=== PATIENT | female | born 1955 | race Caucasian/White ===

== ENCOUNTER → 2017-07-05 | Outpatient (CLI) | payer OTHER ==
[~2017-07-05] MED LIST: CALC500C3 PO; CETI10TA84 PO; CITA40TA12 PO; FLUT0.15; MULT-506 PO; SNG10
--- NOTE | 2017-07-05 11:13 | DIAGNOSTIC IMAGING REPORT ---
LEFT FOOT MIN 3 VIEWS ROUTINE CLINICAL HISTORY: M79.672 M79.675 PAIN IN LEFT FOOT AND TOE COMPARISON: None. DISCUSSION: The bones and joint spaces appear intact. There is no evidence of fracture, dislocation or bony disease. There is no evidence for soft tissue swelling. IMPRESSION: Negative study. The above report was generated using voice recognition software. It may contain grammatical, syntax or spelling errors. Electronically signed by: Lencho Dubon M.D. 07/05/2017 11:12 AM Dictated Date/Time: 07/05/2017 11:11 AM
== END | disposition home or self-care (01) ==
LOC: C.RAD1850 10:46
PROVIDERS: ATTEND Nurse Practitioner Family
DX: M79.672 Pain in left foot (principal); M79.675 Pain in left toe(s); M79.89 Other specified soft tissue disorders

== ENCOUNTER → 2017-08-31 | Outpatient (CLI) | payer OTHER ==
--- NOTE | 2017-08-31 15:57 | MAMMOGRAPHY REPORT ---
BILATERAL DIGITAL SCREENING MAMMOGRAM TOMOSYNTHESIS WITH CAD: 08/31/2017 CLINICAL HISTORY: Routine screening. TECHNIQUE: Breast tomosynthesis in addition to standard 2D mammography was performed. Current study was also evaluated with a Computer Aided Detection (CAD) system. COMPARISON: Comparison is made to exams dated: 04/29/2010 ultrasound, 04/29/2010 mammogram, 10/27/2009 ultrasound, 10/27/2009 mammogram, 10/15/2009 mammogram - [facility]. BREAST COMPOSITION: The tissue of both breasts is heterogeneously dense, which may obscure small mas ses. FINDINGS: No suspicious masses, calcifications, or areas of architectural distortion are noted in ei ther breast. There has been no significant interval change compared to prior exams. Scattered bilate ral benign-appearing calcifications are again noted. A linear scar marker denotes a scar on the righ t superior breast. IMPRESSION: ACR BI-RADS CATEGORY 2: BENIGN There is no mammographic evidence of malignancy. A 1 year screening mammogram is recommended. The pa tient will receive written notification of the results. Approximately 10% of breast cancers are not detected with mammography. A negative mammographic report should not delay biopsy if a clinically suggestive mass is present. Rebeca More M.D. ah/:08/31/2017 14:21:24 Resistance Brazer: Dayday KUMAR)([place]), [facility] letter sent: Normal 1/2 BI-RADS Code: ACR BI-RADS Category 2: Benign
== END | disposition home or self-care (01) ==
LOC: C.MAMM 13:20
PROVIDERS: ATTEND Nurse Practitioner Family
DX: Z12.31 Encounter for screening mammogram for malignant neoplasm of breast (principal)

== ENCOUNTER 2018-06-24 18:25 | Observation (INO) | payer OTHER ==
[~2018-06-24] VITALS: Ht 170.2 cm; Wt 73.5 kg
[2018-06-24] MEDS ORDERED: SODIUM CHLORIDE 0.9% 1000ML 1,000 ML IV SCH (18:37)
[2018-06-24 19:17] LABS: BASO % 0.6 %; BASO ABS # 0.05 K/uL (0-0.2); EOS % 1.8 %; EOS ABS # 0.16 K/uL (0-0.5); HEMOGLOBIN 13.6 g/dL (12.0-16.0); IG# 0.01 K/uL (0.00-0.02); LYMPH % 40.5 %; LYMPH ABS # 3.62 K/uL (1.2-3.4); MEAN CELL VOLUME 91.5 fL (80-100); MEAN CORPUSCULAR HEMOGLOBIN 30.4 pg (25-34); MEAN CORPUSCULAR HGB CONC 33.2 g/dl (32-36); MONO % 8.3 %; MONO ABS # 0.74 K/uL (0.11-0.59); NEUT % 48.7 %; NEUT ABS # 4.36 K/uL (1.4-6.5); PLATELET COUNT 293 K/uL (130-400); RED CELL DISTRIBUTION WIDTH CV 12.6 % (11.5-14.5); RED CELL DISTRIBUTION WIDTH SD 42.3 fL (36.4-46.3); WHITE BLOOD COUNT 8.94 K/uL (4.8-10.8)
[2018-06-24 19:31] LABS: PTT PATIENT 22.9 SECONDS (21.0-31.0)
[2018-06-24 19:43] LABS: BLOOD UREA NITROGEN 16 mg/dl (7-18); CALCIUM 9.5 mg/dl (8.5-10.1); CARBON DIOXIDE 25 mmol/L (21-32); CKMB < 1.0 ng/ml (0.5-3.6); CREATININE 0.86 mg/dl (0.60-1.20); GLUCOSE 92 mg/dl (70-99); POTASSIUM 3.9 mmol/L (3.5-5.1); SODIUM 140 mmol/L (136-145)
--- NOTE | 2018-06-24 19:52 | DIAGNOSTIC IMAGING REPORT ---
HEAD WITHOUT CONTRAST (CT) CLINICAL HISTORY: 63 years-old Female presenting with Stroke, left-sided numbness. TECHNIQUE: Multidetector CT imaging of the head was performed without the use of intravenous contrast. IV contrast: None. A dose lowering technique was used consistent with the principles of ALARA (as low as reasonably achievable). COMPARISON: None. CT DOSE (mGy.cm): The estimated cumulative dose is 638.56 mGycm. FINDINGS: Retail Aide topogram: Unremarkable. Ventricles and sulci normal in size. Brain parenchyma normal in appearance with preserved trejo-white differentiation. No mass effect or midline shift. No hemorrhage or acute territorial infarct. No extra-axial fluid collection. Paranasal sinuses and mastoid air cells clear. Calvarium intact. IMPRESSION: 1. No acute intracranial abnormality. Electronically signed by: Kale Burt M.D. 06/24/2018 7:51 PM Dictated Date/Time: 06/24/2018 7:49 PM
[2018-06-24] MEDS ORDERED: DILT120T8 PO (20:29)
[2018-06-24] MEDS ORDERED: MONT1TAB3 PO (20:29)
[2018-06-24] MEDS ORDERED: PHARMACIST DISCHARGE MED REC CONSULT PRN (21:15)
--- NOTE | 2018-06-24 21:19 | History and Physical ---
History & Physical Date & Time of Service: Jun 24, 2018 at 21:15 Chief Complaint: Lt Sided Tingling,Pins And Dewey Primary Care Physician: Naseem Oh M.D. History of Present Illness Source: patient 63 year old female with a PMH of Prinzmetal angina that presented to [facility] with left sided tingling. The tingling occurred at approximately 4pm today. It went all the way from her head down to her toes. It included her scalp, face, arms and leg all on the left side of her body. It has slowly been improving since she arrived to the ED. She has not had these symptoms in the past. She denies any numbness, weakness, headache, nausea, vomiting, chest pain, palpitations, decreased appetite, difficulty swallowing, fevers, chills. Besides the tingling she notes she feels well. Past Medical/Surgical History Medical Problems: (1) Chest pain (2) Precordial chest pain (3) Tingling of left upper extremity and left side of face Family History No significant family history Mother has a history of strokes starting in her 50's to her 90's No family history of hypercoagulable disease Social History Smoking Status: Never Smoker Smokeless Tobacco Use: No Alcohol Use: occasionally Drug Use: none Marital Status: Housing status: lives with family Occupational Status: employed Immunizations History of Influenza Vaccine: Unknown History of Tetanus Vaccine?: Unknown History of Pneumococcal: Unknown History of Hepatitis B Vaccine: Unknown Allergies Coded Allergies: Penicillins (Verified Allergy, Severe, ANAPHYLAXSIS, 06/24/18) POLLEN (Verified Allergy, Intermediate, SNEEZING, CONGESTION, 06/24/18) Home Medications Scheduled Cetirizine (Zyrtec), 10 MG PO HS Diltiazem Hcl (Cardizem), 120 MG PO DAILY Multivitamin (Multivitamin), 1 TAB PO DAILY Scheduled PRN Calcium Carbonate (Tums), 2 TAB PO DIRECTED PRN for HEARTBURN/INDIGESTION Fluticasone Propionate (Nasal) (Flonase Allergy Relief), 2 PUFFS NA DIRECTED PRN for ALLERGY Montelukast Sodium (Singulair), 10 MG PO DAILY PRN for Seasonal Allergies Review of Systems 10 systems were reviewed and negative except as noted in the HPI Physical Exam Vital Signs Date Time Temp Pulse Resp B/P (MAP) Pulse Ox O2 Delivery O2 Flow Rate FiO2 06/24/18 20:35 36.8 65 17 148/73 98 Room Air 06/24/18 20:21 64 06/24/18 19:07 98 Room Air 06/24/18 18:28 36.7 79 17 139/77 99 Room Air General Appearance: WD/WN, no apparent distress Eyes: PERRL, EOMI, sclerae normal ENT: hearing grossly normal, pharynx normal Neck: supple, no adenopathy, no JVD, no carotid bruits, trachea midline Respiratory/Chest: lungs clear, no respiratory distress, no accessory muscle use Cardiovascular: regular rate, rhythm, no edema, no murmur, normal peripheral pulses Abdomen/GI: normal bowel sounds, non tender, soft Extremities/Musculoskelatal: normal inspection, no calf tenderness, no pedal edema, non-tender 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, no motor/sensory deficits, alert, oriented x 3 Skin: normal color, warm/dry, no rash Diagnostics Laboratory Results Results Past 24 Hours Test 06/24/18 18:59 06/24/18 19:00 06/24/18 21:07 Range/Units Bedside Glucose 91 70-90 mg/dl White Blood Count 8.94 4.8-10.8 K/uL Red Blood Count 4.48 4.2-5.4 M/uL Hemoglobin 13.6 12.0-16.0 g/dL Hematocrit 41.0 37-47 % Mean Corpuscular Volume 91.5 80-100 fL Mean Corpuscular Hemoglobin 30.4 25-34 pg Mean Corpuscular Hemoglobin Concent 33.2 32-36 g/dl Platelet Count 293 130-400 K/uL Mean Platelet Volume 10.0 7.4-10.4 fL Neutrophils (%) (Auto) 48.7 % Lymphocytes (%) (Auto) 40.5 % Monocytes (%) (Auto) 8.3 % Eosinophils (%) (Auto) 1.8 % Basophils (%) (Auto) 0.6 % Neutrophils # (Auto) 4.36 1.4-6.5 K/uL Lymphocytes # (Auto) 3.62 1.2-3.4 K/uL Monocytes # (Auto) 0.74 0.11-0.59 K/uL Eosinophils # (Auto) 0.16 0-0.5 K/uL Basophils # (Auto) 0.05 0-0.2 K/uL RDW Standard Deviation 42.3 36.4-46.3 fL RDW Coefficient of Variation 12.6 11.5-14.5 % Immature Granulocyte % (Auto) 0.1 % Immature Granulocyte # (Auto) 0.01 0.00-0.02 K/uL Prothrombin Time 10.3 9.0-12.0 SECONDS Prothromb Time International Ratio 1.0 0.9-1.1 Activated Partial Thromboplast Time 22.9 21.0-31.0 SECONDS Partial Thromboplastin Ratio 0.9 Sodium Level 140 136-145 mmol/L Potassium Level 3.9 3.5-5.1 mmol/L Chloride Level 106 98-107 mmol/L Carbon Dioxide Level 25 21-32 mmol/L Anion Gap 9.0 3-11 mmol/L Blood Urea Nitrogen 16 7-18 mg/dl Creatinine 0.86 0.60-1.20 mg/dl Est Creatinine Clear Calc Drug Dose 70.5 ml/min Estimated GFR () 83.3 Estimated GFR (Non- 71.9 BUN/Creatinine Ratio 18.5 10-20 Random Glucose 92 70-99 mg/dl Calcium Level 9.5 8.5-10.1 mg/dl Magnesium Level 1.9 1.8-2.4 mg/dl Total Creatine Kinase 52 26-192 U/L Creatine Kinase MB < 1.0 0.5-3.6 ng/ml Creatine Kinase MB Ratio 0-3.0 Troponin I < 0.015 0-0.045 ng/ml Diagnostic Radiology [~ rep ct add3]] HEAD WITHOUT CONTRAST (CT) CLINICAL HISTORY: 63 years-old Female presenting with Stroke, left-sided numbness. TECHNIQUE: Multidetector CT imaging of the head was performed without the use of intravenous contrast. IV contrast: None. A dose lowering technique was used consistent with the principles of ALARA (as low as reasonably achievable). COMPARISON: None. CT DOSE (mGy.cm): The estimated cumulative dose is 638.56 mGycm. FINDINGS: Coal Cager topogram: Unremarkable. Ventricles and sulci normal in size. Brain parenchyma normal in appearance with preserved trejo-white differentiation. No mass effect or midline shift. No hemorrhage or acute territorial infarct. No extra-axial fluid collection. Paranasal sinuses and mastoid air cells clear. Calvarium intact. IMPRESSION: 1. No acute intracranial abnormality. Normal EKG Impression Assessment and Plan 63 year old female with a PMH of Prinzmetal angina that presented with left sided tingling. Dr. Saleh and Dr. Berman want to admit the patient for a TIA workup. Vitals normal, Normal labs, normal EKG and normal CT scan of head thus far TIA workup - administer 81mg of aspirin - order carotid US and echo - order lipid panel and HbA1c - Start 40mg of atorvastatin and aspirin daily - Blood pressure currently well controlled - admit to telemetry - consult neuro Prinzmetal angina - continue cardizem DVT - patient is ambulatory - SCD's Full Code Attending addendum: I have physically seen this patient, have supervised the medical residents activities, and agree with the H&P unless as otherwise noted. Assessment and Plan: Resolved left upper and lower extremity tingling and numbness/TIA-- Follow ischemic stroke/TIA protocol pathway. The patient will be admitted to telemetry for serial cardiac enzymes, serial EKG's, cardiac rhythm monitoring and a 2-D echocardiogram with Dopplers. Start chewable aspirin 81 mg daily with first dose tonight. Neurochecks per protocol. Order carotid ultrasound. Order fasting lipid panel and hemoglobin A1c. Order MRI brain without contrast. Start Lipitor 40 mg daily. Consult neurology CAD/hypertension/Prinzmetal's angina-- Continue Cardizem CD 120 mg p.o. daily. Advanced Directives Existing Advance Directive: No Existing Living Will: No Existing Power of Chinese Herbalist: No Resuscitation Status VTE Prophylaxis Will order VTE Prophylaxis: Yes Social Service Consult None Apply
[2018-06-24] MEDS ORDERED: ASPIRIN 81 MG CHEW PO STA (21:21)
[2018-06-24 21:51] VITALS: O2SAT 98
[2018-06-24] MEDS ORDERED: ASPIRIN 81 MG CHEW PO ONE (22:15)
[2018-06-24 22:20] VITALS: BP 138/58; PULSE 62; TEMP 36.4; O2SAT 94
[2018-06-24] MEDS: ASPIRIN 81 MG CHEW PO ONE ×2 (22:20→22:30)
[2018-06-24] MEDS ORDERED: IV FLUIDS COMPLETED PRN (22:30)
[2018-06-25 00:09] VITALS: BP 136/77; PULSE 62; TEMP 36.5; O2SAT 94
[2018-06-25 00:26] VITALS: Ht 170.2 cm; Wt 73.5 kg
--- NOTE | 2018-06-25 00:27 | EMERGENCY ROOM VISIT NOTE ---
History Report prepared by Navya: Genesis Schuster Under the Supervision of: Dr. Pavan Saleh D.O. First contact with patient: 18:32 Chief Complaint: OTHER COMPLAINT Stated Complaint: LT SIDED TINGLING,PINS AND NEEDLES History of Present Illness The patient is a 63 year old female who presents to the Emergency Room with complaints of constant L-sided tingling beginning 2 hours ago. She notes the tingling is present on the entire left side of her body, from her head to feet, and describes it as " pins and needles." Denies any weakness. No exacerbating or remitting factors. The patient denies any weakness, numbness, headache, changes in vision, chest pain, shortness of breath, nausea, vomiting, diarrhea, pain with urination, and melena. She reports a history of Prinzmetal angina, and notes her current symptoms do not feel similar to that. The patient denies a history of stents. She states she sees Dr. Oh of [place] as her PCP. The patient denies blood thinner use. Source of History: patient Onset: 2 hours ago Position: other (enitre L side of body) Quality: other (tingling) Timing: constant Associated Symptoms: No headache, No SOB, No nausea, No vomiting, No melena , No urinary symptoms, No weakness, No numbness Note: Denies: changes in vision Review of Systems See HPI for pertinent positives & negatives. A total of 10 systems reviewed and were otherwise negative. Past Medical & Surgical Medical Problems: (1) Chest pain (2) Tingling of left upper extremity and left side of face Family History No significant family history Social History Smoking Status: Never Smoker Marital Status: Housing Status: lives with family Occupation Status: employed Current/Historical Medications Scheduled Cetirizine (Zyrtec), 10 MG PO HS Diltiazem Hcl (Cardizem), 120 MG PO DAILY Multivitamin (Multivitamin), 1 TAB PO DAILY Scheduled PRN Calcium Carbonate (Tums), 2 TAB PO DIRECTED PRN for HEARTBURN/INDIGESTION Fluticasone Propionate (Nasal) (Flonase Allergy Relief), 2 PUFFS NA DIRECTED PRN for ALLERGY Montelukast Sodium (Singulair), 10 MG PO DAILY PRN for Seasonal Allergies Allergies Coded Allergies: Penicillins (Verified Allergy, Severe, ANAPHYLAXSIS, 06/24/18) POLLEN (Verified Allergy, Intermediate, SNEEZING, CONGESTION, 06/24/18) Physical Exam Vital Signs Date Time Temp Pulse Resp B/P (MAP) Pulse Ox O2 Delivery O2 Flow Rate FiO2 06/24/18 20:35 36.8 65 17 148/73 98 Room Air 06/24/18 20:21 64 06/24/18 19:07 98 Room Air 06/24/18 18:28 36.7 79 17 139/77 99 Room Air Physical Exam GENERAL: Sitting up in bed, alert, well appearing, well nourished, no distress, non-toxic EYE EXAM: normal conjunctiva. PERRL and EOM's intact. OROPHARYNX: no exudate, no erythema, lips, buccal mucosa, and tongue normal and mucous membranes are moist NECK: supple, no nuchal rigidity, no adenopathy, non-tender LUNGS: Clear to auscultation. Normal chest wall mechanics HEART: no murmurs, S1 normal and S2 normal ABDOMEN: abdomen soft, non-tender, normo-active bowel sounds, no masses, no rebound or guarding. BACK: Back is symmetrical on inspection and there is no deformity, no midline tenderness, no CVA tenderness. SKIN: no rashes and no bruising UPPER EXTREMITIES: upper extremities are grossly normal. LOWER EXTREMITIES: No pitting edema. NEURO EXAM: Normal sensorium, cranial nerves II-XII intact, normal speech, no weakness of arms, no weakness of legs. No drift. Finger to nose intact. Gross sensation intact. Rapid alternating movements of upper extremities intact, ambulates without difficulty. Medical Decision & Procedures ER Provider Diagnostic Interpretation: Radiology results as stated below per my review and the radiologist's interpretation: HEAD WITHOUT CONTRAST (CT) CLINICAL HISTORY: 63 years-old Female presenting with Stroke, left-sided numbness. TECHNIQUE: Multidetector CT imaging of the head was performed without the use of intravenous contrast. IV contrast: None. A dose lowering technique was used consistent with the principles of ALARA (as low as reasonably achievable). COMPARISON: None. CT DOSE (mGy.cm): The estimated cumulative dose is 638.56 mGycm. FINDINGS: Wood Patternmaker topogram: Unremarkable. Ventricles and sulci normal in size. Brain parenchyma normal in appearance with preserved trejo-white differentiation. No mass effect or midline shift. No hemorrhage or acute territorial infarct. No extra-axial fluid collection. Paranasal sinuses and mastoid air cells clear. Calvarium intact. IMPRESSION: 1. No acute intracranial abnormality. Electronically signed by: Kale Burt M.D. 06/24/2018 7:51 PM Dictated Date/Time: 06/24/2018 7:49 PM Laboratory Results 06/24/18 19:00 Red Blood Count 4.48, Mean Corpuscular Volume 91.5, Mean Corpuscular Hemoglobin 30.4, Mean Corpuscular Hemoglobin Concent 33.2, Mean Platelet Volume 10.0, Neutrophils (%) (Auto) 48.7, Lymphocytes (%) (Auto) 40.5, Monocytes (%) (Auto) 8.3, Eosinophils (%) (Auto) 1.8, Basophils (%) (Auto) 0.6, Neutrophils # (Auto) 4.36, Lymphocytes # (Auto) 3.62, Monocytes # (Auto) 0.74, Eosinophils # (Auto) 0.16, Basophils # (Auto) 0.05 06/24/18 19:00 Test 06/24/18 18:59 06/24/18 19:00 Bedside Glucose 91 mg/dl (70-90) White Blood Count 8.94 K/uL (4.8-10.8) Red Blood Count 4.48 M/uL (4.2-5.4) Hemoglobin 13.6 g/dL (12.0-16.0) Hematocrit 41.0 % (37-47) Mean Corpuscular Volume 91.5 fL (80-100) Mean Corpuscular Hemoglobin 30.4 pg (25-34) Mean Corpuscular Hemoglobin Concent 33.2 g/dl (32-36) Platelet Count 293 K/uL (130-400) Mean Platelet Volume 10.0 fL (7.4-10.4) Neutrophils (%) (Auto) 48.7 % Lymphocytes (%) (Auto) 40.5 % Monocytes (%) (Auto) 8.3 % Eosinophils (%) (Auto) 1.8 % Basophils (%) (Auto) 0.6 % Neutrophils # (Auto) 4.36 K/uL (1.4-6.5) Lymphocytes # (Auto) 3.62 K/uL (1.2-3.4) Monocytes # (Auto) 0.74 K/uL (0.11-0.59) Eosinophils # (Auto) 0.16 K/uL (0-0.5) Basophils # (Auto) 0.05 K/uL (0-0.2) RDW Standard Deviation 42.3 fL (36.4-46.3) RDW Coefficient of Variation 12.6 % (11.5-14.5) Immature Granulocyte % (Auto) 0.1 % Immature Granulocyte # (Auto) 0.01 K/uL (0.00-0.02) Prothrombin Time 10.3 SECONDS (9.0-12.0) Prothromb Time International Ratio 1.0 (0.9-1.1) Activated Partial Thromboplast Time 22.9 SECONDS (21.0-31.0) Partial Thromboplastin Ratio 0.9 Anion Gap 9.0 mmol/L (3-11) Est Creatinine Clear Calc Drug Dose 70.5 ml/min Estimated GFR () 83.3 Estimated GFR (Non- 71.9 BUN/Creatinine Ratio 18.5 (10-20) Calcium Level 9.5 mg/dl (8.5-10.1) Magnesium Level 1.9 mg/dl (1.8-2.4) Total Creatine Kinase 52 U/L (26-192) Creatine Kinase MB < 1.0 ng/ml (0.5-3.6) Creatine Kinase MB Ratio (0-3.0) Troponin I < 0.015 ng/ml (0-0.045) Laboratory results per my review. Medications Administered Medications (Trade) Dose Ordered Sig/Azul Route Start Time Stop Time Status Last Admin Dose Admin Sodium Chloride 1,000 ml @ 50 mls/hr Q20H IV 06/24/18 18:37 06/24/18 22:20 DC 06/24/18 19:01 50 MLS/HR ECG Per My Interpretation Indication: weakness Rate (beats per minute): 65 Rhythm: normal sinus Findings: other (normal axis. no PVCs.) ED Course ED COURSE: Vital signs were reviewed and showed situational hypertension. The patients medical record was reviewed The above diagnostic studies were performed and reviewed. ED treatments and interventions as stated above. 1837: The patient was evaluated in room B3B. A complete history and physical examination was performed. Ordered Sodium Chloride 1000 ml @ 50 mls/hr IV. 1953: Upon reevaluation, the patient's tingling has improved. 2044: I reviewed the patient's case with Dr. Sanderson [facility] neurology. She recommends admittance of the patient for a stroke workup. 2050: I reviewed the patient's case with Dr. Fonseca [facility] hospitalist. He will evaluate the patient for further management. 2053: Upon reevaluation, the patient is resting. I discussed my findings with the patient and she understands and agrees with the treatment plan. Based on the patients age, coexisting illnesses, exam and lab findings the decision to treat as an inpatient was made. The patient remained stable while under my care. The patient will be evaluated for further management. Medical Decision Differential Diagnosis includes but is not limited to ischemic Stroke, hemorrhagic stroke, bells palsy, mass, neoplasm, migraine headache, seizure, subarachnoid hemorrhage, TIA, and transient global amnesia. Patient is a 63-year-old female who presents the ER for left-sided paresthesias from her head down to her leg. No other exacerbating or remitting factors. Started at 430. She denies any weakness. Lower exam is completely intact. CBC along with BMP, and troponin was negative. CT head was negative. Discussed with neurology and they agreed that she likely needs a stroke workup and admission. Cyst with internal medicine. Patient was updated at bedside. EKG was unremarkable. patient was given fluids IV. Medication Reconcilliation Current Medication List: was personally reviewed by me Blood Pressure Screening Patient's blood pressure: Elevated blood pressure Blood pressure disposition: Elevated BP felt to be situational Consults Time Called: 1951 Consulting Physician: Dr. Sanderson, [facility] neurology Returned Call: [phone]: I reviewed the patient's case with Dr. Sanderson [facility] neurology. She recommends admittance of the patient for a stroke workup. Additional Consults: Time Called: 2047 Consulted Physician: Dr. Fonseca [facility] hospitalist Returned Call: [phone] Additional Comments: 2050: I reviewed the patient's case with Dr. Fonseca [facility] hospitalist. He will evaluate the patient for further management. Impression Primary Impression: Paresthesia Scribe Attestation The scribe's documentation has been prepared under my direction and personally reviewed by me in its entirety. I confirm that the note above accurately reflects all work, treatment, procedures, and medical decision making performed by me. Departure Information Dispostion Being Evaluated By Hospitalist Referrals Naseem Oh M.D. (PCP) Patient Instructions My [facility]
[2018-06-25 04:51] VITALS: BP 129/78; PULSE 62; TEMP 36.5; O2SAT 98
--- NOTE | 2018-06-25 06:31 | DIAGNOSTIC IMAGING REPORT ---
CAROTID DOPPLER NECK ART HISTORY: Mental status change TIA COMPARISON: None. TECHNIQUE: Real-time, grayscale, and color Doppler sonography of the carotid arteries was performed. Imaging reviewed in the transverse and longitudinal planes. All measurements were calculated based on NASCET criteria. FINDINGS: Antegrade flow is seen in the bilateral vertebral arteries. The brachial pressures are hemodynamically similar. Mild plaque bilaterally The peak systolic velocity within the right ICA is 76. The right systolic ratio is 0.74 The peak systolic velocity within the left ICA is 68. The left systolic ratio is 0.65. IMPRESSION: No hemodynamically significant stenosis seen within the carotid arteries. The above report was generated using voice recognition software. It may contain grammatical, syntax or spelling errors. Electronically signed by: Lencho Dubon M.D. 06/25/2018 6:29 AM Dictated Date/Time: 06/25/2018 6:28 AM
[2018-06-25 07:32] LABS: HEMATOCRIT 40.4 % (37-47); HEMOGLOBIN 13.2 g/dL (12.0-16.0); MEAN CELL VOLUME 91.8 fL (80-100); MEAN CORPUSCULAR HGB CONC 32.7 g/dl (32-36); MEAN PLATELET VOLUME 9.8 fL (7.4-10.4); PLATELET COUNT 273 K/uL (130-400); RED CELL DISTRIBUTION WIDTH CV 12.6 % (11.5-14.5); RED CELL DISTRIBUTION WIDTH SD 42.5 fL (36.4-46.3); WHITE BLOOD COUNT 5.72 K/uL (4.8-10.8)
[2018-06-25 08:00] LABS: CALCIUM 8.6 mg/dl (8.5-10.1); CREATININE 0.75 mg/dl (0.60-1.20); POTASSIUM 3.8 mmol/L (3.5-5.1)
[2018-06-25 08:13] LABS: BASO % 0.9 %; BASO ABS # 0.05 K/uL (0-0.2); EOS % 3.5 %; IG# 0.01 K/uL (0.00-0.02); LYMPH ABS # 2.86 K/uL (1.2-3.4); MONO % 8.7 %; NEUT % 36.7 %
[2018-06-25 08:17] VITALS: BP 119/79; PULSE 64; TEMP 36.6; O2SAT 94
[2018-06-25] MEDS ORDERED: DILTIAZEM HCL 120 MG CAPCR PO SCH (09:00)
[2018-06-25] MEDS ORDERED: ATORVASTATIN 40 MG TAB PO SCH (09:00)
[2018-06-25] MEDS ORDERED: ASPIRIN 81 MG ECTAB PO SCH (09:00)
--- NOTE | 2018-06-25 09:27 | DIAGNOSTIC IMAGING REPORT ---
MRI OF THE BRAIN WITHOUT IV CONTRAST CLINICAL HISTORY: Left-sided paresthesias. COMPARISON STUDY: CT of the brain dated 06/24/2018. TECHNIQUE: MRI of the brain was performed utilizing various T1 and T2-weighted sequences in the axial, sagittal, and coronal planes. IV contrast was not administered for this examination. FINDINGS: Brain parenchyma: There is minimal subcortical and periventricular microangiopathic disease. The brain parenchyma is otherwise normal in appearance. There is no hemorrhage or mass effect. There is no restricted diffusion to suggest acute ischemia. Ornelas-white matter differentiation is preserved. No extra-axial fluid collection is seen. The cerebellar tonsils are normal in configuration. Ventricles, sulci, and cisterns: Normal in configuration. Pituitary and sella: Unremarkable. Intracranial vasculature: Normal flow voids are maintained at the skull base. Orbits: The bony orbits are grossly intact. Orbital contents are normal in appearance. Sinuses and mastoids: There is trace mucosal thickening in the left maxillary antrum. The remaining paranasal sinuses and mastoid air cells are clear. Calvarium: Unremarkable. Cervical cord: Partially visualized cervical spinal cord is normal in morphology and signal intensity. IMPRESSION: No acute intracranial abnormality. Electronically signed by: Cristian Rhodes M.D. 06/25/2018 9:26 AM Dictated Date/Time: 06/25/2018 9:19 AM
--- NOTE | 2018-06-25 10:36 | Neurology Consultation ---
Neurology Consultation Date of Consultation: Jun 25, 2018. Attending Physician: Omar Fonseca M.D. Primary Care Physician: Naseem Oh M.D. Reason for Consultation: TIA History of Present Illness Source: patient, hospital records The patient is a 63-year-old female with a chief complaint left-sided numbness. She complains of left-sided numbness and tingling that began acutely yesterday evening about 2 hours prior to presentation in the emergency department. She complained of an associated feeling of heaviness in the arm and leg as well. She was not aware of any facial weakness, change in speech, vision change, or headache. The symptoms resolved in about 2-3 hours. The patient indicates that she was feeling well prior to symptom onset and denies any particular recent injury or illness. She does not have a history of similar symptoms in the past. Past medical history is notable for Prinzmetal's angina for which she has been taking a calcium channel vandana. She denies any recent changes in her medications. A CT of the head completed in the emergency department was unremarkable. No evidence of hemorrhage or acute process. Electrocardiogram revealed a sinus rhythm, 65 beats per minute. The patient's blood pressure was mildly elevated yesterday.A serum glucose was normal although hemoglobin A1c is slightly elevated at 6.0. The patient is also completed a follow-up brain MRI. I reviewed the images and radiologist's interpretation of this test. There is evidence of minimal, scattered, microangiopathic disease. Past Medical/Surgical History Medical Problems: (1) Paresthesia Status: Acute (2) Precordial chest pain Status: Acute Family History Family history notable for stroke in the mother. Social History Smokeless Tobacco Use: No Alcohol Use: occasionally Drug Use: none Marital Status: Housing Status: lives with family Occupation Status: employed Allergies Coded Allergies: Penicillins (Verified Allergy, Severe, ANAPHYLAXSIS, 06/24/18) POLLEN (Verified Allergy, Intermediate, SNEEZING, CONGESTION, 06/24/18) Current Inpatient Medications Current Inpatient Medications Medications (Trade) Dose Ordered Sig/Azul Route Start Time Stop Time Status Last Admin Dose Admin Atorvastatin Calcium (Lipitor Tab) 40 mg QAM PO 06/25/18 09:00 07/25/18 08:59 Aspirin (Ecotrin Tab) 81 mg QAM PO 06/25/18 09:00 07/25/18 08:59 06/25/18 07:42 81 MG Miscellaneous Information (Pharmacist Discharge Med Rec Consult) 1 ea UD PRN N/A 06/24/18 21:15 07/24/18 21:14 Diltiazem HCl (Cardizem Cd Cap) 120 mg DAILY PO 06/25/18 09:00 07/25/18 08:59 06/25/18 07:43 120 MG Miscellaneous (Iv Fluids Completed) 1 ea PRN PRN N/A 06/24/18 22:30 06/24/19 22:29 06/24/18 22:31 1 EA Review of Systems Constitutional: No fever chills Eyes: No vision loss or diplopia ENT: No vertigo or hearing loss Cardiovascular: No chest pain or palpitations Respiratory: No cough or shortness of breath Musculoskeletal: No myalgia or arthralgia Neurological: As per history of present illness Skin: No rash, lesions or sores. No recent tick bite. A full 10 point review of systems was obtained from this patient with pertinent positives and negatives described in the history of present illness and otherwise listed above. All remaining systems were reviewed and are negative Physical Exam Vital Signs (Past 24 Hrs): Date Time Temp Pulse Resp B/P (MAP) Pulse Ox O2 Delivery O2 Flow Rate FiO2 06/25/18 08:17 36.6 64 18 119/79 (92) 94 Room Air 06/25/18 08:00 Room Air 06/25/18 04:51 36.5 62 18 129/78 (95) 98 Room Air 06/25/18 00:26 Room Air 06/25/18 00:09 36.5 62 18 136/77 (96) 94 Room Air 06/25/18 00:00 Room Air 06/24/18 22:20 36.4 62 16 138/58 (84) 94 Room Air 06/24/18 21:51 36.5 59 17 144/70 98 Room Air 06/24/18 20:35 36.8 65 17 148/73 98 Room Air 06/24/18 20:21 64 06/24/18 19:07 98 Room Air 06/24/18 18:28 36.7 79 17 139/77 99 Room Air The patient is a well-developed, well-nourished elderly female. She is lying comfortably in bed. She is alert and fully oriented. Recent and remote memory intact. Attention and concentration normal. Patient exhibits a normal spontaneous speech pattern as well as an age-appropriate fund of knowledge. Visual huerta full to confrontation. Visual acuity normal. Pupils equal round react to light and accommodation. Eye movements normal. No nystagmus. Facial sensation intact bilaterally. There is normal facial symmetry and strength. No facial droop. Hearing intact bilaterally. Palate elevates to midline. Shoulder shrug strength intact. Tongue protrudes to midline. Sensation intact to all modalities in all 4 limbs. There is no jeana sensory deficit. Deep tendon reflexes are intact and symmetrical for the arms and legs. Plantar responses downgoing bilaterally. There is no dysdiadochokinesia or dysmetria of [id number]-imcz or heel to trevizo bilaterally. Ophthalmoscopic examination reveals normal-appearing optic discs and posterior segments. No papilledema or hemorrhages. Carotid pulses normal bilaterally, no bruits to auscultation. Gait and station normal. Muscle strength normal throughout. There is normal muscle tone. No atrophy. No abnormal movements observed. Laboratory Results Past 24 Hours: 06/25/18 07:18 Red Blood Count 4.40, Mean Corpuscular Volume 91.8, Mean Corpuscular Hemoglobin 30.0, Mean Corpuscular Hemoglobin Concent 32.7, Mean Platelet Volume 9.8, Neutrophils (%) (Auto) 36.7, Lymphocytes (%) (Auto) 50.0, Monocytes (%) (Auto) 8.7, Eosinophils (%) (Auto) 3.5, Basophils (%) (Auto) 0.9, Neutrophils # (Auto) 2.10, Lymphocytes # (Auto) 2.86, Monocytes # (Auto) 0.50, Eosinophils # (Auto) 0.20, Basophils # (Auto) 0.05 06/25/18 07:18 Test 06/24/18 18:59 06/24/18 19:00 06/25/18 07:18 Bedside Glucose 91 mg/dl (70-90) Prothrombin Time 10.3 SECONDS (9.0-12.0) Prothromb Time International Ratio 1.0 (0.9-1.1) Activated Partial Thromboplast Time 22.9 SECONDS (21.0-31.0) Partial Thromboplastin Ratio 0.9 Estimated Average Glucose 126 mg/dl Hemoglobin A1c 6.0 % (4.5-5.6) Magnesium Level 1.9 mg/dl (1.8-2.4) Total Creatine Kinase 52 U/L (26-192) Creatine Kinase MB < 1.0 ng/ml (0.5-3.6) Creatine Kinase MB Ratio (0-3.0) Troponin I < 0.015 ng/ml (0-0.045) White Blood Count 5.72 K/uL (4.8-10.8) Red Blood Count 4.40 M/uL (4.2-5.4) Hemoglobin 13.2 g/dL (12.0-16.0) Hematocrit 40.4 % (37-47) Mean Corpuscular Volume 91.8 fL (80-100) Mean Corpuscular Hemoglobin 30.0 pg (25-34) Mean Corpuscular Hemoglobin Concent 32.7 g/dl (32-36) Platelet Count 273 K/uL (130-400) Mean Platelet Volume 9.8 fL (7.4-10.4) Neutrophils (%) (Auto) 36.7 % Lymphocytes (%) (Auto) 50.0 % Monocytes (%) (Auto) 8.7 % Eosinophils (%) (Auto) 3.5 % Basophils (%) (Auto) 0.9 % Neutrophils # (Auto) 2.10 K/uL (1.4-6.5) Lymphocytes # (Auto) 2.86 K/uL (1.2-3.4) Monocytes # (Auto) 0.50 K/uL (0.11-0.59) Eosinophils # (Auto) 0.20 K/uL (0-0.5) Basophils # (Auto) 0.05 K/uL (0-0.2) RDW Standard Deviation 42.5 fL (36.4-46.3) RDW Coefficient of Variation 12.6 % (11.5-14.5) Immature Granulocyte % (Auto) 0.2 % Immature Granulocyte # (Auto) 0.01 K/uL (0.00-0.02) Anion Gap 7.0 mmol/L (3-11) Est Creatinine Clear Calc Drug Dose 74.7 ml/min Estimated GFR () 98.3 Estimated GFR (Non- 84.8 BUN/Creatinine Ratio 22.5 (10-20) Calcium Level 8.6 mg/dl (8.5-10.1) Triglycerides Level 143 mg/dl (0-150) Cholesterol Level 187 mg/dl (0-200) HDL Cholesterol 48 mg/dl LDL Cholesterol, Calculated 110 mg/dl VLDL Cholesterol, Calculated 29 mg/dl Cholesterol/HDL Ratio 3.9 Impression Probable TIA localizing to the subcortical right cerebral hemisphere. Symptoms completely resolved. Intact neurological examination. Generally unremarkable neuro imaging with evidence of mild chronic microvascular change. No evidence of carotid atherosclerotic disease. Patient may have borderline diabetes mellitus. Blood pressure normal today. Plan Agree with aspirin 81 milligrams per day. Patient can probably do without the statin. She does have a history of intolerance to statins. Ongoing outpatient management for borderline diabetes mellitus. There does not appear to be any need for PT or OT. Follow-up with results of the echocardiogram. No further recommendations at this time.
[2018-06-25] MEDS ORDERED: ASPI-461 PO (14:49)
--- NOTE | 2018-06-25 14:52 | Discharge Instructions ---
Discharge Instructions Date of Service Jun 25, 2018. Admission Reason for Admission: Tingling Of Lt Upper Extremity And Lt Side Of Face Discharge Discharge Diagnosis / Problem: TIA Discharge Goals Goal(s): Improve disease control, Diagnostic testing Activity Recommendations Activity Limitations: resume your previous activity Exercise/Sports Limitations: gradually increase as tolerated . Instructions / Follow-Up Instructions / Follow-Up Please follow up with your primary care provider within about a week Risk Factors for Stroke: You can reduce your chances of stroke by working with your medical provider to adopt a healthy lifestyle. Some specific ways to lower your chance of stroke are: * If you are a smoker, now is the time to stop smoking cigarettes * If you are diabetic, improve the control of your blood sugars * Avoid excessive amounts of alcohol * Control high blood pressure * Lose weight if you are overweight * Be sure to lead an active lifestyle * Eat a healthy diet low in salt, cholesterol and fat You should know about other risk factors for stroke that you are unable to control. These include: * Age 55 years or older * Male gender * Certain racial groups: , or / * Family History of Stroke, Mini stroke or Heart Attack * Sickle Cell Disease Follow Up: It is important for you to keep your follow up appointments with your medical provider. Current Hospital Diet Patient's current hospital diet: Regular Diet Discharge Diet Recommended Diet: Regular Diet Procedures Procedures Performed: MRI, Carotid ultrasound, CT Head Pending Studies Studies pending at discharge: no Laboratory Results Hemoglobin A1c Test 06/24/18 19:00 Range/Units Estimated Average Glucose 126 mg/dl Hemoglobin A1c 6.0 H 4.5-5.6 % Lipid Panel Test 06/25/18 07:18 Range/Units Triglycerides Level 143 0-150 mg/dl Cholesterol Level 187 0-200 mg/dl HDL Cholesterol 48 mg/dl Cholesterol/HDL Ratio 3.9 LDL Cholesterol, Calculated 110 mg/dl Medical Emergencies . Who to Call and When: Medical Emergencies: Call 911 immediately if you experience any of the following warning signs and symptoms of Stroke: * Sudden numbness or weakness of the face, arm or leg, especially on one side of the body * Sudden confusion, trouble speaking or understanding * Sudden trouble seeing in one or both eyes * Sudden trouble walking, dizziness, loss of balance or coordination * Sudden severe headache with no cause Do not delay calling 911 if you experience any warning signs or symptoms of a stroke. Delay in seeking medical attention may affect what treatments can be given to you. . Non-Emergent Contact Non-Emergency issues call your: Primary Care Provider Call Non-Emergent contact if: you have any medication questions . . "Provider Documentation" section prepared by Ember Padgett. . Stroke Core Measures Reason no t-PA for Stroke: Treatment not indicated Reason no antithrom by day 2: Treatment provided - N/A Reason no antithrom at D/C: Treatment provided - N/A Reason no statin at D/C: Drug intolerance Reason no anticoag w/a fib: Treatment not indicated
--- NOTE | 2018-06-25 15:13 | Discharge Summary ---
Discharge Summary Date of Service Jun 25, 2018. Discharge Summary Admission Date: Jun 24, 2018 at 21:14 Discharge Date: Jun 25, 2018 Discharge Disposition: Home Principal Diagnosis: TIA Immunizations: Have You Had Influenza Vaccine: Unknown History of Tetanus Vaccine?: Unknown History of Pneumococcal: Unknown History of Hepatitis B Vaccine: Unknown Procedures: MRI OF THE BRAIN WITHOUT IV CONTRAST IMPRESSION: No acute intracranial abnormality. CAROTID DOPPLER NECK ART IMPRESSION: No hemodynamically significant stenosis seen within the carotid arteries. HEAD WITHOUT CONTRAST (CT) IMPRESSION: 1. No acute intracranial abnormality. Consultations: Dr. Arreola with neurology Medication Reconciliation New Medications: Aspirin (Aspirin) 81 Mg Tab 81 MG PO QAM for 30 Days, #30 TAB Continued Medications: Calcium Carbonate (Tums) 500 Mg Chew 2 TAB PO DIRECTED PRN for HEARTBURN/INDIGESTION Cetirizine (Zyrtec) 10 Mg Tab 10 MG PO HS Diltiazem Hcl (Cardizem) 120 Mg Tab 120 MG PO DAILY Fluticasone Propionate (Nasal) (Flonase Allergy Relief) 50 Mcg/Act Spr 2 PUFFS NA DIRECTED PRN for ALLERGY Montelukast Sodium (Singulair) 10 Mg Tab 10 MG PO DAILY PRN for Seasonal Allergies, TAB Multivitamin (Multivitamin) Tab 1 TAB PO DAILY, TAB Discharge Exam ROS Constitutional: no chills, aches, sweats or fever Respiratory: no sob,cough, sputum, or wheezing Cardiac: no chest pain, palpitations, edema, orthopnea or lightheadedness GI: no abdominal pain, nausea, vomiting, diarrhea or constipation : no dysuria or hesitancy Extremities: no joint pain or weakness Skin: no rash All other systems reviewed and negative General: no distress Eyes: normal inspection, PERLL Respiratory: chest non tender, clear to auscultation, normal breath sounds, no respiratory distress, no accessory muscle use Cardiac: regular rate and rhythm, no rub or gallop, no murmur, no edema, no jvd GI/: active bowel sounds, no abd pain or tenderness, soft, non distended Extremities: normal range of motion, normal strength, non tender Neuro/Psych: alert and oriented x 3, normal mood and affect Skin: normal color, dry Hospital Course 63 year old female with a PMH of Prinzmetal angina that presented to [facility] with left sided tingling. The tingling occurred at approximately 4pm the day of arrival. It went all the way from her head down to her toes. It included her scalp, face, arms and leg all on the left side of her body. It resolved in the ED. TIA workup - continue 81mg of aspirin - Head CT, MRI, carotids wnl - lipid panel wnl, HbA1c 6.0 - Patient unable to tolerate statins - consulted neuro - probable TIA localizing to the subcortical right cerebral hemisphere - Echo pending - given that there is no evidence of embolic event, low likelihood of cardiac thrombus or shunt, discussed this with patient and she is comfortable with going home before the results and to follow up with her primary care provider Prinzmetal angina - continue cardizem [employer] Physician Supervision Note: I discussed with Ember Padgett NP and agree with findings and plan as documented in the note. Any exceptions or clarifications are listed here: None we are aware that final echo report is pending Documented By: Wayne Waddell Total Time Spent: Greater than 30 minutes This includes examination of the patient, discharge planning, medication reconciliation, and communication with other providers. Discharge Instructions Please refer to the electronic Patient Visit Report (Discharge Instructions) for additional information.
[2018-06-25 15:17] VITALS: BP 127/74; PULSE 69; TEMP 36.4; O2SAT 94
[2018-06-25 15:23] VITALS: BP 127/74; PULSE 69; TEMP 36.4; O2SAT 94
--- NOTE | 2018-06-25 15:44 | Pharmacy Progress Note ---
Pharmacist Stroke Counseling Date of Service Jun 25, 2018. Scope Pharmacy has been consulted to provide medication discharge counseling for this patient admitted with ischemic stroke/hemorrhagic stroke/ transient ischemic attack as per the Pharmacist Discharge Counseling for Stroke Patients Protocol. Medications on Discharge New Medications: Aspirin (Aspirin) 81 Mg Tab 81 MG PO QAM for 30 Days, #30 TAB Continued Medications: Calcium Carbonate (Tums) 500 Mg Chew 2 TAB PO DIRECTED PRN for HEARTBURN/INDIGESTION Cetirizine (Zyrtec) 10 Mg Tab 10 MG PO HS Diltiazem Hcl (Cardizem) 120 Mg Tab 120 MG PO DAILY Fluticasone Propionate (Nasal) (Flonase Allergy Relief) 50 Mcg/Act Spr 2 PUFFS NA DIRECTED PRN for ALLERGY Montelukast Sodium (Singulair) 10 Mg Tab 10 MG PO DAILY PRN for Seasonal Allergies, TAB Multivitamin (Multivitamin) Tab 1 TAB PO DAILY, TAB Action The above medications, specifically ones for stroke treatment/prophylaxis, have been reviewed in detail with the patient and/or patient credit representative(s) prior to discharge. This includes indication, common adverse reactions, drug interactions, and medication administration. Medication counseling has been employed using the teach-back method to ensure understanding. Outcome The patient and/or patient credit representative(s) have demonstrated understanding of the medications. Please note, they are aware that the pharmacist will call them within 72 hours post-discharge to confirm that the appropriate medications are being taken and answer any further medication related questions the patient might have at that time. Contact information Individual to be contacted: Evelyne Gibson Relationship to patient (if applicable): patient Phone number: Best time to call: Additional comments: pt exhibited a strong understanding of her ASA 81. I verified that she doesn'ta take any homeopathic or herbal supplements. Thank you for allowing pharmacy to be involved in the care of this patient. Please call [phone] or [phone] with any additional questions
--- NOTE | 2018-06-25 21:28 | ECHOCARDIOGRAM REPORT ---
*NOTICE TO RECEIVING REPUBLICAN AGENCY This information is strictly Confidential and protected under [place] law. [place] law prohibits you from making any further disclosure of this information unless further disclosure is expressly permitted by the written consent of the person to whom it pertains or is authorized by law. A general authorization for the release of medical or other information is not sufficient for this purpose. Hospital accepts no responsibility if the information is made available to any other person, INCLUDING THE PATIENT. Interpretation Summary * Name: DAPHNIE GUTIERREZ Study Date: 06/25/2018 11:05 AM BP: 129/78 mmHg * Patient Location: [facility] HR: 65 * : 1955 (M/d/yyyy) Gender: Female Height: 67 in * Age: 63 yrs Ethnicity: [place] Weight: 163 lb * Ordering Physician: Bebo Morales * Referring Physician: Self, Referred * Performed By: Leslie Staples RCS * * Reason For Study: TIA * BSA: 1.9 m2 * -- Conclusions -- * 1. Normal left ventricular size and systolic function. EF 55-60%. No regional wall motion abnormalities. Mild concentric left ventricular hypertrophy. No significant diastolic dysfunction. * 2. No significant valvular abnormalities visualized. * 3. No visualized ASD. There was no evidence of right to left inter atrial shunt following agitated saline injection. Procedure Details * A complete two-dimensional transthoracic echocardiogram was performed (2D, M-mode, Doppler and color flow Doppler). * A saline contrast injection was performed to assess for cardiac shunting. * The injection was performed through an intravenous line in the right arm. * The attending nurse who injected the saline contrast was MICHAEL MUNOZ RN. * A total of 20 cc of agitated saline was given. Left Ventricle * Normal left ventricular size and systolic function. EF 55-60%. No regional wall motion abnormalities. Mild concentric left ventricular hypertrophy. No significant diastolic dysfunction. Right Ventricle * The right ventricle is normal in size and function. * The right ventricular systolic function is normal as assessed by tricuspid annular plane systolic excursion (TAPSE) (normal >1.5 cm). Atria * The left atrial size is normal. * Right atrial size is normal. * No visualized ASD. There was no evidence of right to left inter atrial shunt following agitated saline injection. Mitral Valve * The mitral valve leaflets appear normal. There is no evidence of stenosis, fluttering, or prolapse. * There is trace mitral regurgitation. Tricuspid Valve * The tricuspid valve is not well visualized, but is grossly normal. * There is no tricuspid stenosis. * Significant tricuspid regurgitation is absent. Aortic Valve * The aortic valve is trileaflet. * No hemodynamically significant valvular aortic stenosis. * No aortic regurgitation is present. Pulmonic Valve * The pulmonary valve is inadequately visualized, but the Doppler data is adequate for interpretation. * There is no pulmonic valvular stenosis. * There is no significant pulmonary regurgitation. Great Vessels * The aortic root is normal size. * Ascending aorta of normal dimension * Normal pulmonary venous flow pattern. Pericardium/Pleural * No significant pericardial effusion. Great Vessels * IVC not well visualized but appeared to be normal in size. MMode 2D Measurements and Calculations IVSd 1.3 cm IVSs 1.5 cm LVIDd 3.8 cm LVIDs 2.5 cm LVPWd 1.2 cm LVPWs 1.5 cm IVS/LVPW 1.1 FS 33.6 % EDV(Teich) 63.5 ml ESV(Teich) 23.4 ml EF(Teich) 63.1 % EDV(cubed) 56.6 ml ESV(cubed) 16.6 ml EF(cubed) 70.7 % % IVS thick 18.8 % % LVPW thick 21.1 % LV mass(C)d 165.7 grams LV mass(C)dI 89.4 grams/m\S\2 LV mass(C)s 129.1 grams LV mass(C)sI 69.6 grams/m\S\2 SV(Teich) 40.1 ml SI(Teich) 21.6 ml/m\S\2 SV(cubed) 40.0 ml SI(cubed) 21.6 ml/m\S\2 Ao root diam 2.9 cm Ao root area 6.8 cm\S\2 ACS 1.8 cm LA dimension 3.4 cm asc Aorta Diam 2.6 cm LA/Ao 1.2 LVOT diam 1.9 cm LVOT area 2.9 cm\S\2 LVAd ap4 30.0 cm\S\2 LVLd ap4 7.6 cm EDV(MOD-sp4) 98.8 ml EDV(sp4-el) 101.4 ml LVAs ap4 18.4 cm\S\2 LVLs ap4 6.4 cm ESV(MOD-sp4) 43.7 ml ESV(sp4-el) 44.9 ml EF(MOD-sp4) 55.8 % EF(sp4-el) 55.7 % SV(MOD-sp4) 55.1 ml SI(MOD-sp4) 29.7 ml/m\S\2 SV(sp4-el) 56.5 ml SI(sp4-el) 30.5 ml/m\S\2 Doppler Measurements and Calculations MV E max jayshree 90.1 cm/sec MV A max jayshree 84.7 cm/sec MV E/A 1.1 MV P1/2t max jayshree 95.8 cm/sec MV P1/2t 74.6 msec MVA(P1/2t) 3.0 cm\S\2 MV dec slope 376.2 cm/sec\S\2 MV dec time 0.20 sec Ao V2 max 126.2 cm/sec Ao max PG 6.4 mmHg Ao max PG (full) 2.7 mmHg PHILIPP(V,A) 2.2 cm\S\2 PHILIPP(V,D) 2.2 cm\S\2 LV V1 max PG 3.6 mmHg LV V1 max 95.4 cm/sec PA V2 max 81.1 cm/sec PA max PG 2.6 mmHg
--- NOTE | 2018-07-01 14:13 | Pharmacy Progress Note ---
Pharmacist Post D/C Phone Note Date of phone call: Jul 01, 2018 (initial contact attempted June 28, 2018) The patient and/or patient floor representative(s) were unable to be reached for a follow-up phone call within the 72 hour time frame. Discharge counseling pharmacist contact information has already been provided to the patient should questions arise. Thank you for allowing us to be involved in the care of this patient.
== END 2018-06-25 15:49 | disposition home or self-care (01) ==
LOC: C.EDB 18:26 → C.MED 21:14 → ENRESERV 21:41
PROVIDERS: ADMIT Hospitalist; ATTEND Hospitalist
DX: G45.9 Transient cerebral ischemic attack, unspecified (principal); Z79.82 Long term (current) use of aspirin; Z79.899 Other long term (current) drug therapy